=== PATIENT | female | born 1995 | race Caucasian/White ===

== ENCOUNTER 2022-09-27 10:00 | Day surgery (SDC) | payer OTHER ==
[~2022-09-27] VITALS: Ht 160 cm; Wt 64.4 kg
[2022-09-27] MEDS ORDERED: MIDAZOLAM 2 MG/2 ML VIAL ONE ×2 (11:32→11:33)
[2022-09-27] MEDS ORDERED: LIDOCAINE 2% 100 MG/5 ML UJET TP ONE (11:33)
[2022-09-27] MEDS ORDERED: fentaNYL citrate 0.05 MG/ML VIAL ONE (11:34)
[2022-09-27] MEDS ORDERED: MIDAZOLAM 2 MG/2 ML VIAL IVP ONE (12:45)
[2022-09-27] MEDS ORDERED: fentaNYL citrate 0.05 MG/ML VIAL IVP ONE (12:45)
== END 2022-09-27 13:22 | disposition home or self-care (01) ==
LOC: MOR 10:00 → MMU 10:01 → MOR 13:22
PROVIDERS: ATTEND Internal Medicine Gastroenterology
DX: K62.5 Hemorrhage of anus and rectum (principal); K59.00 Constipation, unspecified; K21.9 Gastro-esophageal reflux disease without esophagitis; F17.210 Nicotine dependence, cigarettes, uncomplicated; Z79.899 Other long term (current) drug therapy
CPT/HCPCS: 43235; 45378; J2250; J3010